=== PATIENT | male | born 1965 | race Caucasian/White ===

== ENCOUNTER → 2016-12-19 | Outpatient (POV) | payer OTHER, MEDICARE, SELFPAY | PROVIDERS: Family Provider Family Medicine Geriatric Medicine; PCP Family Medicine Geriatric Medicine; Referring Provider Family Medicine Geriatric Medicine; Visit Provider Nurse Anesthetist, Certified Registered | DX: M54.16 Radiculopathy, lumbar region (principal) | CPT/HCPCS: 99212 ==

== ENCOUNTER 2017-03-06 11:26 | Outpatient (CLI) | payer MEDICARE, MEDICAID, SELFPAY ==
[2017-03-06 20:11] LABS: Amphetamine/Metha Screen,Urine Negative ng/mL (<1000); Barbiturates Screen,Urine Negative ng/mL (<200); Benzodiazepines Screen,Urine Negative ng/mL (200); Cannabinoid Screen,Urine Negative ng/mL (<50); Cocaine Screen,Urine Negative ng/g (<300); Methadone Screen,Urine Negative ng/mL (<300); Opiate Screen,Urine Positive ng/mL (<300); Phencyclidine Screen,Urine Negative ng/mL (<25)
[2017-03-15 09:18] LABS: Codeine Negative (Cutoff=100); Hydrocodone Positive (.); Hydromorphone Positive (.); Morphine Negative (Cutoff=100)
[2017-03-16 11:06] LABS: Opiates Positive (.)
== END 2017-03-06 12:30 | disposition home or self-care (01) ==
LOC: LAB 11:34
PROVIDERS: PCP Family Medicine Geriatric Medicine; Visit Provider Anesthesiology
DX: Z79.899 Other long term (current) drug therapy (principal)
CPT/HCPCS: 80305; 80361; G0480

== ENCOUNTER → 2017-04-02 08:47 | Outpatient (POV) | payer MEDICARE, MEDICAID, SELFPAY ==
[2017-04-02 09:01] VITALS: BP 129/77; PULSE 72; RESP 16; O2SAT 96; BMI 32.5
--- NOTE | 2017-04-02 09:24 | HMH.PAINSOAP ---
[facility] Pain Management SOAP Note Subjective:: The pleasant 51-year-old white male who presents today for medication refills. 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 Patient rates his pain a 5 out of 10 today. He states that this is pretty typical for him with his medications. Patient states that the medication helps 50-60% with his pain. Patient has currently in dialysis goes 3 times a week. Patient is having some difficulty today staying awake however he has been having bouts of insomnia. Patient is currently medically managed on [place] 7.5 mg 1 p.o. 3 times daily and gabapentin 300 mg 1 p.o. 3 times daily. She denies any side effects from this medication. Patient is able to walk however today he is in a wheelchair he does use a walker for stability. Patient is unable to produce urine at this time. We will send a serum drug screen. Patient's HEBER #[id number] reviewed in appropriate. ROS General: no recent weight change, no fever, no sleep disturbances Respiratory: no cough, no shortness of air, no recurring pulmonary infections Cardiovascular/Peripheral Vascular: No chest pain, No palpitations, no edema, no shortness of breath. Gastrointestinal: no incontinence, constipation at times Genitourinary: no incontinence Musculoskeletal: Low back pain Psychiatric: normal mood/ affect Neurological: Weakness in bilateral lower extremities, has balance issues at times Objective:: Physical Exam General: Alert and oriented x3, no acute distress, pleasant and cooperative, [on room air] Lungs: Resps E/U, Symmetrical chest expansion, Musculoskeletal: Flexion and extension of lumbar spine somewhat guarded secondary to pain, deep tendon reflexes normal, strength in upper and lower extremities [5/5], [abnormal gait noted] Neurological: speech clear, facilities coordinator equal, no gross sensory deficits Assessment:: Lumbar back pain, lumbar radiculopathy with degenerative disc disease lumbar spine Plan:: Today we will refill his [place] 7.5 mg 1 p.o. 3 times daily and is gabapentin 300 mg 1 p.o. 3 times daily. We will give him 2 months worth of prescriptions and he can pick remover his third month in the interim. I have discussed this with Dr. Kirkpatrick and he has reviewed it. Patient's HEBER #[id number] reviewed in appropriate. We will send off her serum blood drug screen today. Will follow up with us when the results return. Patient has been prescribed a controlled substance after being counseled on the medication, medication safety, and possible side effects. HEBER report has been obtained and reviewed prior to prescription and found to be appropriate. Opioid contract was reviewed and signed by the patient, and that they have agreed to all of the terms set forth by our compliance program. This note was dictated using voice recognition software and may contain omissions or errors
--- NOTE | 2017-04-02 09:27 | P.CONS_ITS ---
[facility] Pain Management SOAP Note Subjective:: The pleasant 51-year-old white male who presents today for medication refills. 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 Patient rates his pain a 5 out of 10 today. He states that this is pretty typical for him with his medications. Patient states that the medication helps 50-60% with his pain. Patient has currently in dialysis goes 3 times a week. Patient is having some difficulty today staying awake however he has been having bouts of insomnia. Patient is currently medically managed on [place] 7.5 mg 1 p.o. 3 times daily and gabapentin 300 mg 1 p.o. 3 times daily. She denies any side effects from this medication. Patient is able to walk however today he is in a wheelchair he does use a walker for stability. Patient is unable to produce urine at this time. We will send a serum drug screen. Patient's HEBER #[id number] reviewed in appropriate. ROS General: no recent weight change, no fever, no sleep disturbances Respiratory: no cough, no shortness of air, no recurring pulmonary infections Cardiovascular/Peripheral Vascular: No chest pain, No palpitations, no edema, no shortness of breath. Gastrointestinal: no incontinence, constipation at times Genitourinary: no incontinence Musculoskeletal: Low back pain Psychiatric: normal mood/ affect Neurological: Weakness in bilateral lower extremities, has balance issues at times Objective:: Physical Exam General: Alert and oriented x3, no acute distress, pleasant and cooperative, [ on room air] Lungs: Resps E/U, Symmetrical chest expansion, Musculoskeletal: Flexion and extension of lumbar spine somewhat guarded secondary to pain, deep tendon reflexes normal, strength in upper and lower extremities [5/5], [abnormal gait noted] Neurological: speech clear, rn clinical research equal, no gross sensory deficits Assessment:: Lumbar back pain, lumbar radiculopathy with degenerative disc disease lumbar spine Plan:: Today we will refill his [place] 7.5 mg 1 p.o. 3 times daily and is gabapentin 300 mg 1 p.o. 3 times daily. We will give him 2 months worth of prescriptions and he can fiber picker his third month in the interim. I have discussed this with Dr. Kirkpatrick and he has reviewed it. Patient's HEBER #[id number] reviewed in appropriate. We will send off her serum blood drug screen today. Will follow up with us when the results return. Patient has been prescribed a controlled substance after being counseled on the medication, medication safety, and possible side effects. HEBER report has been obtained and reviewed prior to prescription and found to be appropriate. Opioid contract was reviewed and signed by the patient, and that they have agreed to all of the terms set forth by our compliance program. This note was dictated using voice recognition software and may contain omissions or errors
[2017-04-13 17:23] LABS: Miscellaneous Test SEE SEP REPORT
--- NOTE | 2017-04-19 09:11 | PC.PHONENOTE ---
called in Rx for Gabapentin 300mg TID with 2 refills to [facility]
== END ==
PROVIDERS: Family Provider Family Medicine Geriatric Medicine; PCP Family Medicine Geriatric Medicine; Visit Provider Clinical Nurse Specialist Family Health
DX: M54.16 Radiculopathy, lumbar region (principal)
CPT/HCPCS: 99212

== ENCOUNTER → 2017-07-17 11:19 | Outpatient (POV) | payer OTHER, SELFPAY ==
[2017-07-17 11:30] VITALS: BP 145/86; PULSE 94; RESP 18; O2SAT 98; BMI 31.1
--- NOTE | 2017-07-17 12:21 | HMH.PAINSOAP ---
[facility] Pain Management SOAP Note Subjective:: Patient is a pleasant 51-year-old white male who presents today for medication refills. Patient is being treated for pain secondary to degenerative disc disease of the lumbar with lumbar radiculopathy. Patient rates his pain a 7 out of 10 today. Patient states that he is having SI joint pain. Patient states his medication helps about 50%. Patient's HEBER #[id number] reviewed and appropriate. Patient's currently being medically managed with [place] 7.5 mg 1 p.o. 3 times daily and gabapentin 300 mg 1 p.o. 3 times daily. He denies any side effects to this medication. Patient is undergoing dialysis 3 days a week. Patient's urine drug screen in the past has been appropriate. ROS General: no recent weight change, no fever, no sleep disturbances Respiratory: no cough, no shortness of air, no recurring pulmonary infections Cardiovascular/Peripheral Vascular: No chest pain, No palpitations, no edema, no shortness of breath. Gastrointestinal: no incontinence, normal bowel movements reported Genitourinary: no incontinence Musculoskeletal: Bilateral SI joint pain Psychiatric: normal mood/ affect Neurological: [denies weakness in extremities], [denies balance issues] Objective:: Physical Exam General: Alert and oriented x3, no acute distress, pleasant and cooperative, [on room air] Lungs: Resps E/U, Symmetrical chest expansion, Eyes: PERRL Musculoskeletal: Flexion and extension of lumbar spine somewhat guarded secondary to pain, deep tendon reflexes normal, strength in upper and lower extremities [5/5], [abnormal gait noted], positive Vladimir's test bilaterally, extreme point tenderness over bilateral SI joints Neurological: speech clear, warrant clerk equal, no gross sensory deficits Assessment:: Degenerative disc disease of the lumbar spine with lumbar radiculopathy, sacroiliitis Plan:: We will increase the patient's gabapentin to 600 mg 1 p.o. 3 times daily. We will refill his [place] 7.5 mg 1 p.o. 3 times daily. We will give him 2 months worth of prescriptions he can tile picker the third month in the interim. Dr. Kirkpatrick has reviewed this chart and agrees with this plan of care. We will call his dialysis physician and determine if he can have bilateral SI joint injections or potentially may be a steroid Dosepak. I will follow-up with this patient either after his injections or at his next medication refill. Patient has been prescribed a controlled substance after being counseled on the medication, medication safety, and possible side effects. HEBER report has been obtained and reviewed prior to prescription and found to be appropriate. Opioid contract was reviewed and signed by the patient, and that they have agreed to all of the terms set forth by our compliance program. This note was dictated using voice recognition software and may contain errors or omissions
--- NOTE | 2017-07-17 12:24 | P.CONS_ITS ---
[facility] Pain Management SOAP Note Subjective:: Patient is a pleasant 51-year-old white male who presents today for medication refills. Patient is being treated for pain secondary to degenerative disc disease of the lumbar with lumbar radiculopathy. Patient rates his pain a 7 out of 10 today. Patient states that he is having SI joint pain. Patient states his medication helps about 50%. Patient's HEBER #[id number] reviewed and appropriate. Patient's currently being medically managed with [place] 7.5 mg 1 p.o. 3 times daily and gabapentin 300 mg 1 p.o. 3 times daily. He denies any side effects to this medication. Patient is undergoing dialysis 3 days a week. Patient's urine drug screen in the past has been appropriate. ROS General: no recent weight change, no fever, no sleep disturbances Respiratory: no cough, no shortness of air, no recurring pulmonary infections Cardiovascular/Peripheral Vascular: No chest pain, No palpitations, no edema, no shortness of breath. Gastrointestinal: no incontinence, normal bowel movements reported Genitourinary: no incontinence Musculoskeletal: Bilateral SI joint pain Psychiatric: normal mood/ affect Neurological: [denies weakness in extremities], [denies balance issues] Objective:: Physical Exam General: Alert and oriented x3, no acute distress, pleasant and cooperative, [ on room air] Lungs: Resps E/U, Symmetrical chest expansion, Eyes: PERRL Musculoskeletal: Flexion and extension of lumbar spine somewhat guarded secondary to pain, deep tendon reflexes normal, strength in upper and lower extremities [5/5], [abnormal gait noted], positive Vladimir's test bilaterally, extreme point tenderness over bilateral SI joints Neurological: speech clear, hims clerk equal, no gross sensory deficits Assessment:: Degenerative disc disease of the lumbar spine with lumbar radiculopathy, sacroiliitis Plan:: We will increase the patient's gabapentin to 600 mg 1 p.o. 3 times daily. We will refill his [place] 7.5 mg 1 p.o. 3 times daily. We will give him 2 months worth of prescriptions he can burr picker the third month in the interim. Dr. Kirkpatrick has reviewed this chart and agrees with this plan of care. We will call his dialysis physician and determine if he can have bilateral SI joint injections or potentially may be a steroid Dosepak. I will follow-up with this patient either after his injections or at his next medication refill. Patient has been prescribed a controlled substance after being counseled on the medication, medication safety, and possible side effects. HEBER report has been obtained and reviewed prior to prescription and found to be appropriate. Opioid contract was reviewed and signed by the patient, and that they have agreed to all of the terms set forth by our compliance program. This note was dictated using voice recognition software and may contain errors or omissions
--- NOTE | 2017-08-13 11:39 | PC.NURSE ---
GABAPENTIN 300MG TID WITH 2 REFILLS FAXED TO [facility]
== END ==
PROVIDERS: Family Provider Family Medicine Geriatric Medicine; PCP Family Medicine Geriatric Medicine; Visit Provider Clinical Nurse Specialist Family Health
DX: M54.16 Radiculopathy, lumbar region (principal); Z79.899 Other long term (current) drug therapy
CPT/HCPCS: 36415; 80356; 80361; 99212; G0480

== ENCOUNTER → 2017-10-22 10:37 | Outpatient (POV) | payer OTHER, SELFPAY ==
[2017-10-22 11:27] VITALS: BP 117/75; PULSE 79; RESP 18; O2SAT 97; BMI 32.5
--- NOTE | 2017-10-22 12:58 | HMH.PAINSOAP ---
[facility] Pain Management SOAP Note Subjective:: Patient is a pleasant 52-year-old white male who presents today for medication refills. Patient is being treated for pain secondary to degenerative disc disease lumbar spine with lumbar radiculopathy. Patient rates his pain a 6 out of 10 today. He states his medication helps about 50%. He is being medically managed with [place] 7.5 mg 1 p.o. 3 times daily gabapentin 300 mg 1 p.o. 3 times daily. He denies side effects to his medication. Patient does undergo dialysis 3 days a week. Patient's urine drug screens have been appropriate in the past. Patient's HEBER #[id number] reviewed and appropriate. ROS General: no recent weight change, no fever, no sleep disturbances Respiratory: no cough, no shortness of air, no recurring pulmonary infections Cardiovascular/Peripheral Vascular: No chest pain, No palpitations, no edema, no shortness of breath. Gastrointestinal: no incontinence, normal bowel movements reported Genitourinary: no incontinence Musculoskeletal: Bilateral SI joint pain, back pain Psychiatric: normal mood/ affect Neurological: [denies weakness in extremities], [denies balance issues] Objective:: Physical Exam General: Alert and oriented x3, no acute distress, pleasant and cooperative, [on room air] Lungs: Resps E/U, Symmetrical chest expansion, Eyes: PERRL Musculoskeletal: Flexion and extension of lumbar spine somewhat guarded secondary to pain, deep tendon reflexes normal, strength in upper and lower extremities [5/5], [abnormal gait noted] Neurological: speech clear, oil expeller operator equal, no gross sensory deficits Assessment:: Degenerative disc disease lumbar spine with lumbar radiculopathy, sacroiliitis Plan:: We will increase the patient's gabapentin to 600 mg 1 p.o. 3 times daily we will also refill his [place] 7.5 mg 1 p.o. 3 times daily. We will give him 2 months worth of prescriptions and he can quill picking machine operator the third month in the interim. Dr. Kirkpatrick has reviewed this chart and agrees with this plan of care. Patient has been prescribed a controlled substance after being counseled on the medication, medication safety, and possible side effects. HEBER report has been obtained and reviewed prior to prescription and found to be appropriate. Opioid contract was reviewed and signed by the patient, and that they have agreed to all of the terms set forth by our compliance program. This note was dictated using voice recognition software and may contain errors or omissions
--- NOTE | 2017-10-22 13:01 | P.CONS_ITS ---
[facility] Pain Management SOAP Note Subjective:: Patient is a pleasant 52-year-old white male who presents today for medication refills. Patient is being treated for pain secondary to degenerative disc disease lumbar spine with lumbar radiculopathy. Patient rates his pain a 6 out of 10 today. He states his medication helps about 50%. He is being medically managed with [place] 7.5 mg 1 p.o. 3 times daily gabapentin 300 mg 1 p.o. 3 times daily. He denies side effects to his medication. Patient does undergo dialysis 3 days a week. Patient's urine drug screens have been appropriate in the past. Patient's HEBER #[id number] reviewed and appropriate. ROS General: no recent weight change, no fever, no sleep disturbances Respiratory: no cough, no shortness of air, no recurring pulmonary infections Cardiovascular/Peripheral Vascular: No chest pain, No palpitations, no edema, no shortness of breath. Gastrointestinal: no incontinence, normal bowel movements reported Genitourinary: no incontinence Musculoskeletal: Bilateral SI joint pain, back pain Psychiatric: normal mood/ affect Neurological: [denies weakness in extremities], [denies balance issues] Objective:: Physical Exam General: Alert and oriented x3, no acute distress, pleasant and cooperative, [on room air] Lungs: Resps E/U, Symmetrical chest expansion, Eyes: PERRL Musculoskeletal: Flexion and extension of lumbar spine somewhat guarded secondary to pain, deep tendon reflexes normal, strength in upper and lower extremities [5/5], [abnormal gait noted] Neurological: speech clear, manufacturing operations manager equal, no gross sensory deficits Assessment:: Degenerative disc disease lumbar spine with lumbar radiculopathy, sacroiliitis Plan:: We will increase the patient's gabapentin to 600 mg 1 p.o. 3 times daily we will also refill his [place] 7.5 mg 1 p.o. 3 times daily. We will give him 2 months worth of prescriptions and he can shrimp picker the third month in the interim. Dr. Kirkpatrick has reviewed this chart and agrees with this plan of care. Patient has been prescribed a controlled substance after being counseled on the medication, medication safety, and possible side effects. HEBER report has been obtained and reviewed prior to prescription and found to be appropriate. Opioid contract was reviewed and signed by the patient, and that they have agreed to all of the terms set forth by our compliance program. This note was dictated using voice recognition software and may contain errors o r omissions
== END ==
PROVIDERS: Family Provider Family Medicine Geriatric Medicine; PCP Family Medicine Geriatric Medicine; Visit Provider Clinical Nurse Specialist Family Health
DX: M51.16 Intervertebral disc disorders with radiculopathy, lumbar region (principal); M46.1 Sacroiliitis, not elsewhere classified
CPT/HCPCS: 99213

== ENCOUNTER → 2018-01-22 09:06 | Outpatient (POV) | payer MEDICARE, OTHER, SELFPAY ==
--- NOTE | 2018-01-22 09:52 | HMH.PAINSOAP ---
[facility] Pain Management SOAP Note Subjective:: Is a pleasant 52-year-old white male who presents today for medication refills. Patient's been treated for pain secondary to degenerative disc disease lumbar spine with lumbar radiculopathy. He rates his pain an 8 out of 10 today. He is currently on [place] 7.5 mg 1 p.o. 3 times daily and gabapentin 600 mg 1 p.o. 3 times daily. Denies side effects to this medication. Patient has not gone through with his last dialysis. Patient's speech is slower today. Patient and I had a discussion that it is important that he continues with his dialysis was also discussed potentially changing him to a [place] patch at this time he would like to stay on his current regimen. ROS General: no recent weight change, no fever, no sleep disturbances Respiratory: no cough, no shortness of air, no recurring pulmonary infections Cardiovascular/Peripheral Vascular: No chest pain, No palpitations, no edema, no shortness of breath. Gastrointestinal: no incontinence, normal bowel movements reported Genitourinary: no incontinence Musculoskeletal: Back pain, leg pain Psychiatric: normal mood/ affect Neurological: [denies weakness in extremities], [denies balance issues] Objective:: Physical Exam General: Alert and oriented x3, no acute distress, pleasant and cooperative, [on room air] Lungs: Resps E/U, Symmetrical chest expansion, Eyes: PERRL Musculoskeletal: Flexion and extension of lumbar spine somewhat guarded secondary to pain, deep tendon reflexes normal, strength in upper and lower extremities [5/5], [abnormal gait noted] Neurological: speech clear, business applications manager equal, no gross sensory deficits Assessment:: Degenerative disc disease lumbar spine with lumbar radiculopathy Plan:: We will refill the patient's gabapentin 600 mg 1 p.o. 3 times daily and [place] 7.5 mg 1 p.o. 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 Dr. Kirkpatrick is reviewed this chart and agrees with this plan of care. Patient has been prescribed a controlled substance after being counseled on the medication, medication safety, and possible side effects. HEBER report has been obtained and reviewed prior to prescription and found to be appropriate. Opioid contract was reviewed and signed by the patient, and that they have agreed to all of the terms set forth by our compliance program. This note was dictated using voice recognition software and may contain errors or omissions
[2018-01-22 09:54] VITALS: BP 140/63; PULSE 73; RESP 18; O2SAT 98; BMI 33.0
== END ==
PROVIDERS: PCP Family Medicine; Visit Provider Clinical Nurse Specialist Family Health
DX: Z79.899 Other long term (current) drug therapy (principal)
CPT/HCPCS: 36415; 80356; 80361; 99213; G0480

== ENCOUNTER → 2018-04-16 09:07 | Outpatient (POV) | payer OTHER, SELFPAY ==
--- NOTE | 2018-04-16 09:21 | HMH.PAINSOAP ---
[facility] Pain Management SOAP Note Subjective:: Patient is a pleasant 52-year-old white male who presents today for medication refills. Patient is currently being medically managed with [place] 7.5 mg 1 p.o. 3 times daily and gabapentin 600 mg 1 p.o. 3 times daily. Patient is being treated for pain secondary to degenerative disc disease lumbar spine with lumbar radiculopathy. He rates his pain a 0 out of 10 today. Patient denies side effects to his medication. He is currently going through dialysis. Patient [place] reviewed and appropriate. ROS General: no recent weight change, no fever, no sleep disturbances Respiratory: no cough, no shortness of air, no recurring pulmonary infections Cardiovascular/Peripheral Vascular: No chest pain, No palpitations, no edema, no shortness of breath. Gastrointestinal: no incontinence, normal bowel movements reported Genitourinary: no incontinence Musculoskeletal: Back pain, leg pain Psychiatric: normal mood/ affect Neurological: [denies weakness in extremities], [denies balance issues] Objective:: Physical Exam General: Alert and oriented x3, no acute distress, pleasant and cooperative, [on room air] Lungs: Resps E/U, Symmetrical chest expansion, Eyes: PERRL Musculoskeletal: Flexion and extension of lumbar spine somewhat guarded secondary to pain, deep tendon reflexes normal, strength in upper and lower extremities [5/5], [abnormal gait noted] Neurological: speech clear, petroleum terminal plant operator equal, no gross sensory deficits Assessment:: Degenerative disc disease lumbar spine with lumbar radiculopathy Plan:: We will refill the patient's gabapentin 600 mg 1 p.o. 3 times daily and [place] 7.5 mg 1 p.o. 3 times daily. We will give him 2 months worth of prescriptions and he can potato picker the third month in the interim. He has been instructed to call the office if he has any issues prior to his next appointment. Patient has been prescribed a controlled substance after being counseled on the medication, medication safety, and possible side effects. HEBER report has been obtained and reviewed prior to prescription and found to be appropriate. Opioid contract was reviewed and signed by the patient, and that they have agreed to all of the terms set forth by our compliance program. Dr. Kirkpatrick has reviewed this note and agrees with this plan of care. This note was dictated using voice recognition software and may contain errors or omissions
[2018-04-16 09:25] VITALS: BP 166/70; PULSE 70; RESP 18; O2SAT 98; BMI 33.6
== END ==
PROVIDERS: PCP Family Medicine; Visit Provider Clinical Nurse Specialist Family Health
DX: M51.16 Intervertebral disc disorders with radiculopathy, lumbar region (principal)
CPT/HCPCS: 99213

== ENCOUNTER → 2018-07-16 08:50 | Outpatient (POV) | payer MEDICARE, SELFPAY ==
[2018-07-16 09:24] VITALS: BP 108/61; PULSE 66; RESP 18; O2SAT 98; BMI 33.6
--- NOTE | 2018-07-16 09:27 | HMH.PAINSOAP ---
[facility] Pain Management SOAP Note Subjective:: Patient is a pleasant 52-year-old white male who presents today for medication refills. He is accompanied by his caregiver. Caregiver reports that the patient was recently hospitalized for stroke-like symptoms at [facility]. She says that stroke was ruled out at that time. During his stay in the hospital, however, he did have a fall in the bathroom and did not report the fall to the hospital staff. He reports hitting his right lower back area on the hardware of the toilet. The patient reports that his back pain has been worse since the fall. The patient is being treated for pain secondary to degenerative disc disease lumbar spine with lumbar radiculopathy. He takes [place] 7.5 mg 1 p.o. 3 times daily and gabapentin 600 mg 1 p.o. 3 times daily. He says the pain medication is generally effective up to about 80%, but today he is rating his pain a 7 out of 10. The patient does deny any side effects to his medication. He is also a hemodialysis patient. [facility] #[id number] reviewed and appropriate. ROS General: no recent weight change, no fever, no sleep disturbances Respiratory: no cough, no shortness of air, no recurring pulmonary infections Cardiovascular/Peripheral Vascular: No chest pain, No palpitations, no edema, no shortness of breath. Gastrointestinal: no incontinence, normal bowel movements reported Genitourinary: no incontinence Musculoskeletal: Back pain, leg pain Psychiatric: normal mood/ affect, [denies depression], [denies anxiety] Neurological: [denies weakness in extremities], [denies balance issues] Objective:: Physical Exam General: Alert and oriented x3, no acute distress, pleasant and cooperative, [on room air] Lungs: Resps E/U, Symmetrical chest expansion, Eyes: PERRL Musculoskeletal: Flexion and extension of lumbar spine somewhat guarded secondary to pain, deep tendon reflexes normal, strength in upper and lower extremities [5/5], antalgic gait noted Neurological: speech clear, social media intern equal, no gross sensory deficits Assessment:: Degenerative disc disease lumbar spine with lumbar radiculopathy Plan:: We will refill the patient's 7.5 mg p.o. 3 times daily. We will also refill the patient's gabapentin 600 mg 1 p.o. 3 times daily. We did discuss topical anti-inflammatories for the acute right lower back pain. We also discussed intermittent ice therapy. Patient declines any imaging study for now, he has been instructed, along with his caregiver, to contact the office if he has any further issues or if the pain continues. Patient has been prescribed a controlled substance after being counseled on the medication, medication safety, and possible side effects. [facility]BER report has been obtained and reviewed prior to prescription and found to be appropriate. Opioid contract was reviewed and signed by the patient, and that they have agreed to all of the terms set forth by our compliance program. Dr. Kirkpatrick has reviewed this note and agrees with this plan of care. This note was dictated using voice recognition software and may contain errors or omissions
--- NOTE | 2018-07-16 09:32 | P.CONS_ITS ---
[facility] Pain Management SOAP Note Subjective:: Patient is a pleasant 52-year-old white male who presents today for medication refills. He is accompanied by his caregiver. Caregiver reports that the patient was recently hospitalized for stroke-like symptoms at [facility]. She says that stroke was ruled out at that time. During his stay in the hospital, however, he did have a fall in the bathroom and did not report the fall to the hospital staff. He reports hitting his right lower back area on the hardware of the toilet. The patient reports that his back pain has been worse since the fall. The patient is being treated for pain secondary to degenerative disc disease lumbar spine with lumbar radiculopathy. He takes [place] 7.5 mg 1 p.o. 3 times daily and gabapentin 600 mg 1 p.o. 3 times daily. He says the pain medication is generally effective up to about 80%, but today he is rating his pain a 7 out of 10. The patient does deny any side effects to his medication. He is also a hemodialysis patient. [facility] #[id number] reviewed and appropriate. ROS General: no recent weight change, no fever, no sleep disturbances Respiratory: no cough, no shortness of air, no recurring pulmonary infections Cardiovascular/Peripheral Vascular: No chest pain, No palpitations, no edema, no shortness of breath. Gastrointestinal: no incontinence, normal bowel movements reported Genitourinary: no incontinence Musculoskeletal: Back pain, leg pain Psychiatric: normal mood/ affect, [denies depression], [denies anxiety] Neurological: [denies weakness in extremities], [denies balance issues] Objective:: Physical Exam General: Alert and oriented x3, no acute distress, pleasant and cooperative, [on room air] Lungs: Resps E/U, Symmetrical chest expansion, Eyes: PERRL Musculoskeletal: Flexion and extension of lumbar spine somewhat guarded secondary to pain, deep tendon reflexes normal, strength in upper and lower extremities [5/5], antalgic gait noted Neurological: speech clear, commercial driver equal, no gross sensory deficits Assessment:: Degenerative disc disease lumbar spine with lumbar radiculopathy Plan:: We will refill the patient's 7.5 mg p.o. 3 times daily. We will also refill the patient's gabapentin 600 mg 1 p.o. 3 times daily. We did discuss topical anti- inflammatories for the acute right lower back pain. We also discussed intermittent ice therapy. Patient declines any imaging study for now, he has been instructed, along with his caregiver, to contact the office if he has any further issues or if the pain continues. Patient has been prescribed a controlled substance after being counseled on the medication, medication safety, and possible side effects. HEBER report has been obtained and reviewed prior to prescription and found to be appropriate. Opioid contract was reviewed and signed by the patient, and that they have agreed to all of the terms set forth by our compliance program. Dr. Kirkpatrick has reviewed this note and agrees with this plan of care. This note was dictated using voice recognition software and may contain errors or omissions
[2018-07-16 11:03] LABS: Basophils # 0.1 K/mm3 (0-0.2); Basophils % 0.8 % (0.1-2.0); Eosinophils # 0.3 K/mm3 (0.0-0.4); Eosinophils % 2.5 % (0.1-12.0); Hematocrit 36.8 % (42.0-52.0); Hemoglobin 12.7 g/dL (14.1-18.0); Lymphocytes # 2.9 K/mm3 (0.7-4.5); Lymphocytes % 23.6 % (10-50); Mean Corpuscular HGB Conc 34.6 g/dL (31.8-35.4); Mean Corpuscular Hemoglobin 29.8 pg (27.0-31.2); Mean Corpuscular Volume 86.3 fl (80-94); Monocytes # 0.6 K/mm3 (0.1-1.0); Monocytes % 4.5 % (1.7-9.3); Neutrophils # 8.4 K/mm3 (1.8-7.8); Neutrophils % 68.5 % (37.0-80.0); Platelet Count 214 K/mm3 (142-424); Red Blood Count 4.27 M/mm3 (4.60-6.20); Red Cell Distribution Width 13.2 % (11.5-17.5); White Blood Count 12.2 K/mm3 (4.8-10.8)
[2018-07-16 12:06] LABS: Alanine Aminotransferase 49 U/L (12-78); Albumin Level 3.3 gm/dL (3.4-5.0); Albumin/Globulin Ratio 0.8 (1.1-1.8); Alkaline Phosphatase 143 U/L (46-116); Anion Gap 18.5 mEq/L (5-15); Aspartate Amino Transferase 29 U/L (15-37); Bilirubin,Total 0.3 mg/dL (0.2-1.0); Blood Urea Nitrogen 43 mg/dL (7-18); Calcium 9.3 mg/dL (8.5-10.1); Carbon Dioxide 25 mmol/L (21.0-32.0); Chloride 103 mmol/L (98-107); Chol/HDL Ratio 3.5 (1-3.5); Cholesterol 125 mg/dL (140-200); Estimated Glomerular Filt Rate 12 ml/min (>60); GFR (African American) 15 ML/MIN (>60); Globulin 4.3 gm/dl (1.3-3.2); Glucose 223 mg/dL (74-106); HDL Cholesterol 36 mg/dL (27-67); LDL Cholesterol 49 mg/dL (0-130); Sodium 141 mmol/L (136-145); Thyroid Stimulating Hormone 3.12 uIU/ml (0.358-3.740); Total Protein,Serum 7.6 gm/dL (6.4-8.2); Triglycerides 198 mg/dL (30-200); VLDL Cholesterol 40 mg/dL (0-40)
[2018-07-16 12:38] LABS: Hemoglobin A1C 7.8 % (0.0-7.0)
[2018-07-16 15:19] LABS: Creatinine,Serum 5.04 mg/dL (0.70-1.30)
[2018-07-16 15:20] LABS: Potassium 5.5 mmoL/L (3.5-5.1)
[2018-07-23 19:52] LABS: Oxycodone Cofirmation WB Negative ng/mL (Cutoff:5); Oxymorphone GS/MS Negative (.)
== END ==
PROVIDERS: PCP Anesthesiology; Visit Provider Clinical Nurse Specialist Family Health
DX: M51.16 Intervertebral disc disorders with radiculopathy, lumbar region (principal); Z79.899 Other long term (current) drug therapy; E11.9 Type 2 diabetes mellitus without complications; I10 Essential (primary) hypertension; E03.9 Hypothyroidism, unspecified
CPT/HCPCS: 36415; 80053; 80061; 80307; 82043; 83036; 84443; 85025; 99212

== ENCOUNTER → 2018-07-16 09:52 | Outpatient (CLI) | payer MEDICARE, SELFPAY | PROVIDERS: Visit Provider Pediatrics | DX: E11.9 Type 2 diabetes mellitus without complications (principal); I10 Essential (primary) hypertension; E78.5 Hyperlipidemia, unspecified; E03.9 Hypothyroidism, unspecified; Z79.899 Other long term (current) drug therapy | CPT/HCPCS: 36415; 80053; 80061; 80307; 82043; 83036; 84443; 85025; 99212 ==

== ENCOUNTER → 2018-10-08 09:47 | Outpatient (POV) | payer OTHER, SELFPAY ==
[2018-10-08 09:55] VITALS: BP 163/74; PULSE 91; RESP 18; O2SAT 98; BMI 34.4
--- NOTE | 2018-10-08 12:57 | P.CONS_ITS ---
[facility] Pain Management SOAP Note Subjective:: Patient is a pleasant 53-year-old white male who presents today for medication refills. He is accompanied by his caregiver. Patient has not been doing well recently. He rates his pain a 9 out of 10 in his low back and bilateral legs. Overall he is doing much worse. He has no new diagnostic imaging I am still concerned that he is taken such a drastic turn in both temperament Dr. Kirkpatrick has reviewed this note and agrees with this plan of care. This note was dictated using voice recognition software and may contain errors or omissions pain control. He is currently on [place] 7.5 mg 1 p.o. 3 times daily and gabapentin 600 mg 1 p.o. 3 times daily. He has had several falls and increasing pain after this. Patient is a hemodialysis patient his blood drug screens have been appropriate. [facility] #[id number] reviewed and appropriate. ROS General: no recent weight change, no fever, no sleep disturbances Respiratory: no cough, no shortness of air, no recurring pulmonary infections Cardiovascular/Peripheral Vascular: No chest pain, No palpitations, no edema, no shortness of breath. Gastrointestinal: no incontinence, normal bowel movements reported Genitourinary: no incontinence Musculoskeletal: Back pain Psychiatric: normal mood/ affect Neurological: [denies weakness in extremities], [denies balance issues] Objective:: Physical Exam General: Alert and oriented x3, no acute distress, pleasant and cooperative, [on room air] Lungs: Resps E/U, Symmetrical chest expansion, Eyes: PERRL Musculoskeletal: Flexion and extension of lumbar spine somewhat guarded secondary to pain, deep tendon reflexes normal, strength in upper and lower extremities [5/5], [abnormal gait noted] Neurological: speech clear, client resolution specialist equal, no gross sensory deficits Assessment:: Degenerative disc disease lumbar spine with lumbar radiculopathy Plan:: We will switch the patient to Percocet 5 mg 1 p.o. 4 times daily given 1 month worth we will also schedule an MRI for the patient. To determine any new pathology post fall. Patient has been prescribed a controlled substance after being counseled on the medication, medication safety, and possible side effects. HEBER report has been obtained and reviewed prior to prescription and found to be appropriate. Opioid contract was reviewed and signed by the patient, and that they have agreed to all of the terms set forth by our compliance program. Dr. Kirkpatrick has reviewed this note and agrees with this plan of care. This note was dictated using voice recognition software and may contain errors or omissions Pain Management Hx Components *Have you ever received a pneumonia vaccine?: Yes *Have you received a flu vaccine this season?: Yes - *Social History *Occupational Status:: other *Travel in the last 8 weeks: None
== END ==
PROVIDERS: PCP Pediatrics; Visit Provider Clinical Nurse Specialist Family Health
DX: M51.16 Intervertebral disc disorders with radiculopathy, lumbar region (principal)
CPT/HCPCS: 99212

== ENCOUNTER → 2018-10-17 07:38 | Outpatient (CLI) | payer OTHER, SELFPAY ==
--- NOTE | 2018-10-17 07:47 | MR_ITS ---
PROCEDURE: MR LUMBAR SPINE WO CON CLINICAL INDICATION: BACK PAIN Low back pain with bilateral leg pain COMPARISON: No exams were available for comparison TECHNIQUE: Standard multiplanar multiecho sequences are performed without contrast. 3-D MIP and myelographic images are also rendered and reviewed FINDINGS: Normal alignment. The spinal cord ends at the T12-L1 level T12-L1 L1-L2 and L2-L3 have an unremarkable appearance. L3-L4: Bulging disc with minimal right paracentral disc protrusion abutting but not displacing the right L4 nerve root. Mild bilateral lateral recess and foraminal narrowing. L4-5: Bulging disc with small central disc protrusion along with facet ligamentum hypertrophy with bilateral lateral recess narrowing and moderate bilateral foraminal narrowing. Slightly greater on the right. L5-S1: Degenerate disc disease with bulging disc eccentric to the left along with facet ligamentum hypertrophy with severe bilateral foraminal narrowing. No extruded herniated disc or canal stenosis. IMPRESSION: 1. L3-L4: Bulging disc with minimal right paracentral disc protrusion abutting but not displacing the right L4 nerve root. Mild bilateral lateral recess and foraminal narrowing. 2. L4-5: Bulging disc with small central disc protrusion along with facet ligamentum hypertrophy with bilateral lateral recess narrowing and moderate bilateral foraminal narrowing. Slightly greater on the right. 3. L5-S1: Degenerate disc disease with bulging disc eccentric to the left along with facet ligamentum hypertrophy with severe bilateral foraminal narrowing. 4. No extruded herniated disc or canal stenosis. Dictated by: Kole Man MD 10/18/2018 08:24 Electronically signed by Kole Man MD in [place] 10/18/2018 08:24
== END ==
PROVIDERS: PCP Pediatrics; Visit Provider Clinical Nurse Specialist Family Health
DX: M54.5 Low back pain (principal)
CPT/HCPCS: 72148; 76376

== ENCOUNTER → 2018-10-29 10:39 | Outpatient (POV) | payer OTHER, SELFPAY ==
[2018-10-29 10:55] VITALS: BP 140/75; PULSE 91; RESP 18; O2SAT 98; BMI 33.3
--- NOTE | 2018-10-29 12:11 | HMH.PAINSOAP ---
[facility] Pain Management SOAP Note Subjective:: he is a pleasant 53-year-old white male who presents today for follow-up after his MRI. Patient is having extreme pain rating an 8 out of 10. He is accompanied by his caregiver. Patient overall is doing much worse. His MRI shows degenerative changes along with disc bulge. Patient has not had any epidural injections recently. We will set him up for 1. Patient currently on Percocet 10 mg 1 p.o. 3 times daily. Gabapentin 600 mg 1 p.o. 3 times daily. Patient is a hemodialysis patient his blood drug screens have all been appropriate. He does not do any medication today. He is not on any blood thinners. ROS General: no recent weight change, no fever, no sleep disturbances Respiratory: no cough, no shortness of air, no recurring pulmonary infections Cardiovascular/Peripheral Vascular: No chest pain, No palpitations, no edema, no shortness of breath. Gastrointestinal: no incontinence, normal bowel movements reported Genitourinary: no incontinence Musculoskeletal: Back pain, leg pain Psychiatric: normal mood/ affect Neurological: [denies weakness in extremities], [denies balance issues] Objective:: Physical Exam General: Alert and oriented x3, no acute distress, pleasant and cooperative, [on room air] Lungs: Resps E/U, Symmetrical chest expansion, Eyes: PERRL Musculoskeletal: Flexion and extension of lumbar spine somewhat guarded secondary to pain, deep tendon reflexes normal, strength in upper and lower extremities [5/5], [abnormal gait noted] Neurological: speech clear, school business administrator equal, no gross sensory deficits Assessment:: Degenerative disc disease lumbar spine with lumbar radiculopathy Plan:: We will schedule him for an L4-L5 lumbar epidural steroid injection with the patient. I believe it would be beneficial given his symptomology. I will follow-up with the patient after this injection reassess his symptoms at that time is been instructed to call the office if he has any issues prior to his next appointment. Dr. Kirkpatrick has reviewed this note and agrees with this plan of care. This note was dictated using voice recognition software and may contain errors or omissions [facility] History I have reviewed the patient's past medical history: Yes *Have you ever received a pneumonia vaccine?: Yes *Have you received a flu vaccine this season?: Yes - *Social History *Occupational Status:: other *Travel in the last 8 weeks: None Family Hx:: Non-contributory
== END ==
PROVIDERS: PCP Pediatrics; Visit Provider Clinical Nurse Specialist Family Health
DX: M51.16 Intervertebral disc disorders with radiculopathy, lumbar region (principal)
CPT/HCPCS: 99212

== ENCOUNTER → 2018-12-17 10:01 | Outpatient (POV) | payer OTHER, MEDICARE, SELFPAY ==
[2018-12-17 10:51] VITALS: BP 155/85; PULSE 102; RESP 18; O2SAT 98; BMI 35.6
--- NOTE | 2018-12-17 14:23 | HMH.PAINSOAP ---
[facility] Pain Management SOAP Note Subjective:: Patient is a pleasant 53-year-old white male who presents today for follow-up after lumbar epidural steroid injection. Patient states that helped significantly up to 80%. Patient rates his pain today a 9 out of 10 stating that today is worse than it has been for the last month almost. Patient states his pain is coming back he would like to repeat the epidural injections and complete a series of 3. ROS General: no recent weight change, no fever, no sleep disturbances Respiratory: no cough, no shortness of air, no recurring pulmonary infections Cardiovascular/Peripheral Vascular: No chest pain, No palpitations, no edema, no shortness of breath. Gastrointestinal: no new onset incontinence, normal bowel movements reported Genitourinary: no new onset incontinence Musculoskeletal: Back pain, leg pain Psychiatric: normal mood/ affect Neurological: [denies new onset weakness in extremities], [denies new onset balance issues] Objective:: Physical Exam General: Alert and oriented x3, no acute distress, pleasant and cooperative, [on room air] Lungs: Resps E/U, Symmetrical chest expansion, Eyes: PERRL Musculoskeletal: Flexion and extension of lumbar spine somewhat guarded secondary to pain, deep tendon reflexes normal, strength in upper and lower extremities [5/5], [abnormal gait noted] Neurological: speech clear, coding quality coordinator equal, no gross sensory deficits Assessment:: Degenerative disc disease lumbar spine with lumbar radiculopathy Plan:: We will schedule a repeat L4-L5 lumbar epidural steroid injection given the efficacy of the last one. I believe it would be beneficial we will give him 1 and then repeated in 3 weeks. I will follow-up with him after his 2 epidurals. He is not on any anticoagulation therapy. He is continuing a home stretching program. He is failed other conservative measures. Dr. Kirkpatrick has reviewed this note and agrees with this plan of care. This note was dictated using voice recognition software and may contain errors or omissions [facility] History I have reviewed the patient's past medical history: Yes Medical History: Reports:: Diabetes Mellitus Type 1 Denies:: Cancer, Diabetes Mellitus Type 2, MRSA, Seizures *Have you ever received a pneumonia vaccine?: Yes *Have you received a flu vaccine this season?: Yes Other Medical History: Reports: Arthritis Other Surgeries: Yes: Cholecystectomy Amputation: No Fractures: No - *Social History Smoking Status: Never smoker Alcohol Intake: never *Occupational Status:: other Housing: apartment Household Members: other *Travel in the last 8 weeks: None Family Hx:: Non-contributory
--- NOTE | 2018-12-23 08:49 | PC.NURSE ---
2 refills for Gabapentin 600mg tid faxed to [facility] per provider order
== END ==
PROVIDERS: PCP Pediatrics; Visit Provider Clinical Nurse Specialist Family Health
DX: M51.16 Intervertebral disc disorders with radiculopathy, lumbar region (principal)
CPT/HCPCS: 99212

== ENCOUNTER → 2019-06-02 14:06 | Outpatient (POV) | payer OTHER, MEDICARE, SELFPAY ==
--- NOTE | 2019-06-02 14:12 | HMH.VVPMSO ---
[facility] PM Virtual Visit SOAP Consent for virtual visit:: With the recent concerns about the COVID-19, we are trying to minimize exposure to you by shifting to telehealth appointments whenever possible. It restricts me from seeing you in person, but the trade off is protecting you during this pandemic. Can you see and hear me okay, and do you consent to this option? If not, I would be happy to see if we can reschedule your appointment in the future, when feasible. Has patient consented to this virtual visit?: Yes Subjective:: Is a 53-year-old white male who presents today for follow-up after lumbar epidural steroid injection. Patient states he did not get any relief from this injection. However he did recently fall. He rates his pain a 4 out of 10. Patient is currently on Percocet and gabapentin. Patient is no longer able to receive Percocet due to Workmen's Comp. deeming it not medically necessary. They will however pay for [place]. We will change him back to [place]. Patient [facility] #[id number] reviewed and appropriate. Patient and I also discussed increasing gabapentin. ROS General: no recent weight change, no fever, no sleep disturbances Respiratory: no cough, no shortness of air, no recurring pulmonary infections Cardiovascular/Peripheral Vascular: No chest pain, No palpitations, no edema, no shortness of breath. Gastrointestinal: no new onset incontinence, normal bowel movements reported Genitourinary: no new onset incontinence Musculoskeletal: Back pain, leg pain, joint pain Psychiatric: normal mood/ affect Neurological: [denies new onset weakness in extremities], [denies new onset balance issues] Objective:: Physical exam: Constitutional: Healthy appearing, well-developed, alert, in no acute distress Psychiatric: Judgment and insight intact, Alert and oriented x4 Mood and affect: Mood normal, affect appropriate Head and face: Inspection: Normocephalic atraumatic, extraocular movement intact Respiratory: Breathing nonlabored, nondyspneic Cardiovascular: No cyanosis, clubbing, or edema observed Skin: Head and neck: Skin with no lesions or rash observed Gait: Able to walk without assistive device: Able to heel and toe walk Neurologic: Sensation grossly intact per patient Musculoskeletal: Decreased range of motion lumbar spine noted Assessment:: Degenerative disc disease lumbar spine with lumbar radiculopathy symptoms Plan:: We will change the patient to [place] 10 mg 1 p.o. 3 times daily and gabapentin 600 mg 1 p.o. 4 times daily. We will see him back for a telehealth visit in 1 month reassess his symptoms at that time he has been instructed to call the office if he has any issues prior to the next patient. This encounter was performed as a telemedicine visit via secure 2 way video and audio to minimize risk and transmission of Covid-19. The patient and we understand the limitations of a telemedicine visit including inability to check reflexes, possibly missing subtle findings on physical exam. Alternative options were presented to the patient and the patient elected to proceed with the visit. We specifically discussed risk factors for Covid-19 including age, heart or lung disease, diabetes, immunosuppression and travel. We also discussed that NSAIDs may worsen Covid-19 infection symptoms and that they should not be used to treat Covid-19 symptoms. Patient was also informed that corticosteroids in any form oral or injectable will decrease immune response and may increase risk of Covid-[address] Kirkpatrick has reviewed this patient's chart and this note and agrees with plan of care. Patient has been instructed to call the office if they have any issues prior to the next appointment. Patient has been prescribed a controlled substance after being counseled on the medication, medication safety, and possible side effects. [facility]BER report has been obtained and reviewed prior to prescription and found to be appropriate. Opi
== END ==
PROVIDERS: Visit Provider Clinical Nurse Specialist Family Health
DX: M51.16 Intervertebral disc disorders with radiculopathy, lumbar region (principal)
CPT/HCPCS: 99212

== ENCOUNTER → 2019-07-15 12:22 | Outpatient (POV) | payer MEDICARE, MEDICAID, SELFPAY ==
--- NOTE | 2019-07-15 16:01 | HMH.VVPMSO ---
[facility] PM Virtual Visit SOAP Consent for virtual visit:: With the recent concerns about the COVID-19, we are trying to minimize exposure to you by shifting to telehealth appointments whenever possible. It restricts me from seeing you in person, but the trade off is protecting you during this pandemic. Can you see and hear me okay, and do you consent to this option? If not, I would be happy to see if we can reschedule your appointment in the future, when feasible. Has patient consented to this virtual visit?: Yes Subjective:: Patient is a pleasant 53-year-old white male who presents today for follow-up. Patient is currently on Theriot 10 mg 1 p.o. 3 times daily and gabapentin was increased at his last visit however has not been helpful we will decrease this back to 3 times a day. Patient is on dialysis daily. [facility] #[id number] reviewed and appropriate. Patient had injections in the past however his last injection was not as helpful as typical. We will refill his medication today. ROS General: no recent weight change, no fever, no sleep disturbances Respiratory: no cough, no shortness of air, no recurring pulmonary infections Cardiovascular/Peripheral Vascular: No chest pain, No palpitations, no edema, no shortness of breath. Gastrointestinal: no new onset incontinence, normal bowel movements reported Genitourinary: no new onset incontinence Musculoskeletal: Back pain, leg pain, joint pain Psychiatric: normal mood/ affect Neurological: [denies new onset weakness in extremities], [denies new onset balance issues] Objective:: Physical exam: Constitutional: Healthy appearing, well-developed, alert, in no acute distress Psychiatric: Judgment and insight intact, Alert and oriented x4 Mood and affect: Mood normal, affect appropriate Head and face: Inspection: Normocephalic atraumatic, extraocular movement intact Respiratory: Breathing nonlabored, nondyspneic Cardiovascular: No cyanosis, clubbing, or edema observed Skin: Head and neck: Skin with no lesions or rash observed Gait: Patient utilizes wheelchair Neurologic: Sensation grossly intact per patient Musculoskeletal: Decreased range of motion lumbar spine noted Assessment:: Degenerative disc disease lumbar spine with lumbar radiculopathy symptoms Plan:: We will continue the patient on his Theriot 10 mg 1 p.o. 3 times daily and gabapentin 600 mg 1 p.o. 3 times daily. We will give him 2 months worth of medication see him back in 3 months. 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 He is been instructed to call the office if he has any issues prior to his next appointment. Patient has been prescribed a controlled substance after being counseled on the medication, medication safety, and possible side effects. [facility] report has been obtained and reviewed prior to prescription and found to be appropriate. Opioid contract was reviewed and signed by the patient, and that they have agreed to all of the terms set forth by our compliance program.This encounter was performed as a telemedicine visit via secure 2 way video and audio to minimize risk and transmission of Covid-19. The patient and we understand the limitations of a telemedicine visit including inability to check reflexes, possibly missing subtle findings on physical exam. Alternative options were presented to the patient and the patient elected to proceed with the visit. We specifically discussed risk factors for Covid-19 including age, heart or lung disease, diabetes, immunosuppression and travel. We also discussed that NSAIDs may worsen Covid-19 infection symptoms and that they should not be used to treat Covid-19 symptoms. Patient was also informed that corticosteroids in any form oral or injectable will decrease immune response and may increase risk of Covid-[address] Kirkpatrick has reviewed this patient's chart and this note and agrees with plan of care. Patient has been instructed to call the office if they have any is
== END ==
PROVIDERS: Visit Provider Clinical Nurse Specialist Family Health
DX: M51.16 Intervertebral disc disorders with radiculopathy, lumbar region (principal)
CPT/HCPCS: 99212

== ENCOUNTER → 2019-10-16 13:03 | Outpatient (POV) | payer OTHER, SELFPAY ==
--- NOTE | 2019-10-16 13:45 | HMH.PAINSOAP ---
[facility] Pain Management SOAP Note Subjective:: Is a 54-year-old white male who presents today for medication refill. He has been treated with low back pain and lumbar radiculopathy symptoms. He is currently managed with [place] 10 mg 1 tablet p.o. 3 times daily. He is also managed with gabapentin 600 mg 1 tablet p.o. 3 times daily. Patient denies any side effects to the medication. His Jose #[id number] has been reviewed and is appropriate. His morphine equivalent is 30. His urine drug screens have been appropriate. Patient does rate his pain a 7 out of 10 today. He says that he is not getting much relief with his oral medication. He has an requested an increase in his medicine. He and I did discuss because he is a dialysis patient a concern for oversedation. He and I also discussed possible spinal cord stimulation, however, he is not interested at this time. He has had injections in the past and says that they are not helpful. He does not want to proceed with any type of injective therapy. Review of Systems General: No recent weight changes, no fever, no sleep disturbances Respiratory: No cough, no shortness of air, no recurring pulmonary infections Cardiovascular/peripheral vascular: No chest pain, no palpitations, no edema, no shortness of breath Gastrointestinal: No new onset incontinence, normal bowel movements reported Genitourinary: No new onset incontinence Musculoskeletal: Low back pain with radiation into bilateral lower extremities Psychiatric: Normal mood/affect Neurological: [Denies weakness in extremities], [denies balance issues] Objective:: Physical exam General: Alert and oriented x3, no acute distress, pleasant and cooperative, [on room air] Lungs: Respirations even and unlabored, symmetrical chest expansion Eyes: PERRL Musculoskeletal: Flexion and extension of lumbar spine somewhat guarded secondary to pain, deep tendon reflexes normal, strength in upper and lower extremities [5/5], [abnormal gait noted] Neurological: Speech clear, intensive care unit nurse equal, no gross sensory deficit Assessment:: Degenerative disc disease lumbar spine with lumbar radiculopathy symptoms Plan:: We will refill the patient's [place] 10 mg 1 tablet p.o. 3 times daily and gabapentin 600 mg 1 tablet p.o. 3 times daily. 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 He has been instructed to contact the clinic if he has any concerns before his next appointment. The patient and I specifically discussed risk factors for COVID19. These risks include, but are not limited to age greater than 60, heart or lung disease, diabetes, immunosuppression, and travel. We also discussed NSAIDs may worsen COVID19 infection or symptoms. Patient should not use NSAIDs to treat COVID19 signs or symptoms. Patient was also informed that any type of corticosteroid of any form (oral or injection) will decrease the patient's immune system response and may increase the likelihood of COVID19 infection and symptoms. [facility] History I have reviewed the patient's past medical history: Yes Medical History: Reports:: Congestive Heart Failure, Diabetes Mellitus Type 1 Denies:: Cancer, Diabetes Mellitus Type 2, MRSA, Seizures *Have you ever received a pneumonia vaccine?: Yes *Have you received a flu vaccine this season?: Yes Other Medical History: Reports: Arthritis Other Surgeries: Yes: Cholecystectomy Amputation: No Fractures: No - *Social History Smoking Status: Never smoker Alcohol Intake: never *Occupational Status:: other Housing: apartment Household Members: other *Travel in the last 8 weeks: None Family Hx:: Non-contributory
[2019-10-16 13:46] VITALS: BP 150/90; PULSE 75; RESP 18; O2SAT 98; BMI 34.9
--- NOTE | 2019-10-28 08:28 | PC.NURSE ---
PT caregiver called to notify office that pt's neurologist decreased gabapentin to 1/2 dose bid r/t kidney function.
== END ==
PROVIDERS: PCP Pediatrics; Visit Provider Clinical Nurse Specialist Family Health
DX: M51.16 Intervertebral disc disorders with radiculopathy, lumbar region (principal)
CPT/HCPCS: 99212